=== PATIENT | female | born 2000 | race African-American/Black ===

== ENCOUNTER 2018-07-09 20:55 | Emergency (ER) | payer MEDICAID, MEDICARE ==
[~2018-07-09] VITALS: Ht 172.7 cm; Wt 57.0 kg
[2018-07-09 21:04] VITALS: BP 123/79
== END 2018-07-09 22:00 | disposition left against medical advice (07) ==
LOC: ER 20:55
DX: R07.89 Other chest pain (principal); R00.2 Palpitations; Z53.21 Procedure and treatment not carried out due to patient leaving prior to being seen by health care provider
CPT/HCPCS: 93005

== ENCOUNTER 2018-10-14 09:19 | Emergency (ER) | payer MEDICARE ==
[~2018-10-14] VITALS: Ht 172.7 cm; Wt 58.0 kg
[2018-10-14 10:54] VITALS: BP 99/61
== END 2018-10-14 10:59 | disposition home or self-care (01) ==
LOC: ER 09:19
DX: S00.261A Insect bite (nonvenomous) of right eyelid and periocular area, initial encounter (principal); R05 Cough; J45.909 Unspecified asthma, uncomplicated; F12.10 Cannabis abuse, uncomplicated; W57.XXXA Bitten or stung by nonvenomous insect and other nonvenomous arthropods, initial encounter; Y93.89 Activity, other specified; Y92.89 Other specified places as the place of occurrence of the external cause
CPT/HCPCS: 99282